=== PATIENT | male | born 1980 | race Caucasian/White ===

== ENCOUNTER → 2017-04-04 | Outpatient (CLI) | payer BC ==
[~2017-04-04] MED LIST: AMOXICILLIN 8751 TAB PO; NO HOME MEDICATIONS; NORCO 325 MG-51 TAB PO; PERCOCET 325 MG1 TA2 PO; PERCOCET 5/321 UDTAB PO; VALIUM 2MG T2 MG/TAB PO; XANAX0.5 MG PO
== END ==
LOC: MHCPAIN 09:14
DX: G89.29 Other chronic pain (principal); M47.27 Other spondylosis with radiculopathy, lumbosacral region; M53.3 Sacrococcygeal disorders, not elsewhere classified; M96.1 Postlaminectomy syndrome, not elsewhere classified
CPT/HCPCS: G0463

== ENCOUNTER → 2017-04-12 | Outpatient (CLI) | payer BC | LOC: MHCPAIN 09:27 | DX: M47.817 Spondylosis without myelopathy or radiculopathy, lumbosacral region (principal); M99.53 Intervertebral disc stenosis of neural canal of lumbar region; M51.27 Other intervertebral disc displacement, lumbosacral region; Z98.890 Other specified postprocedural states | CPT/HCPCS: J1100; J2250; J3010; Q9967 ==

== ENCOUNTER → 2017-04-25 | Outpatient (CLI) | payer BC | LOC: MHCPAIN 08:18 | DX: G89.29 Other chronic pain (principal); M47.27 Other spondylosis with radiculopathy, lumbosacral region; M53.3 Sacrococcygeal disorders, not elsewhere classified; M96.1 Postlaminectomy syndrome, not elsewhere classified | CPT/HCPCS: G0463 ==

== ENCOUNTER → 2017-07-25 | Outpatient (CLI) | payer BC | LOC: COL.RAD 12:45 | DX: R10.32 Left lower quadrant pain (principal) ==

== ENCOUNTER 2017-08-27 10:35 | Day surgery (SDC) | payer BC ==
[~2017-08-27] VITALS: Ht 182.9 cm; Wt 79.2 kg
[2017-08-27 11:05] VITALS: BP 147/89; PULSE 65; TEMP 97.9
[2017-08-27 15:15] VITALS: BP 117/84; PULSE 71; TEMP 99.2
[2017-08-27 15:30] VITALS: BP 125/79; PULSE 75
[2017-08-27 15:45] VITALS: BP 122/80; PULSE 53
[2017-08-27] MEDS ORDERED: TYLENOL 500MG500 MG PO (15:46)
[2017-08-27] MEDS ORDERED: ROXICODONE 55 MG/TAB PO (15:47)
[2017-08-27 16:00] VITALS: BP 115/67; PULSE 66
[2017-08-27 16:25] VITALS: BP 127/88; PULSE 72
== END 2017-08-27 17:52 | disposition home or self-care (01) ==
LOC: SDCO 10:35
DX: K43.9 Ventral hernia without obstruction or gangrene (principal); F17.210 Nicotine dependence, cigarettes, uncomplicated
CPT/HCPCS: C1781; J0690; J1100; J1170; J1885; J2270; J2405; J2704; J3010; J7120